=== PATIENT | female | born 2005 | race Caucasian/White ===

== ENCOUNTER 2024-08-17 14:41 | Emergency (ER) | payer MEDICAID, OTHER ==
[~2024-08-17] VITALS: Ht 167.6 cm; Wt 48.7 kg
[2024-08-17 14:52] VITALS: BP 102/56; TEMP 97.1; O2SAT 100
[2024-08-17 16:11] LABS: PLATELET COUNT, AUTOMATED 229 10^3/uL (150-450)
[2024-08-17 16:32] LABS: AMPHETAMINES LEVEL URINE NEGATIVE (NEGATIVE); BARBITURATES URINE NEGATIVE (NEGATIVE); BENZODIAZEPINES URINE NEGATIVE (NEGATIVE); COCAINE METABOLITE URINE NEGATIVE (NEGATIVE); METHADONE URINE NEGATIVE (NEGATIVE); OPIATES URINE NEGATIVE (NEGATIVE); PHENCYCLIDINE URINE NEGATIVE (NEGATIVE)
[2024-08-17 16:34] LABS: ETHYL ALCOHOL (ETHANOL) < 0.003 % (0.000-0.010)
[2024-08-17 16:35] LABS: SALICYLATE LEVEL < 3.0 MG/DL (<30)
[2024-08-17 16:36] LABS: ALT/SGPT 10 U/L (7.0-40); AST/SGOT 17 U/L (<34); CALCIUM LEVEL 8.7 MG/DL (8.5-10.1); CARBON DIOXIDE LEVEL 20 MMOL/L (20-31); CHLORIDE LEVEL 108 MMOL/L (98-107); CREATININE FOR GFR 0.41 MG/DL (0.55-1.30); GLOMERULAR FILTRATION RATE > 90.0 (>60); IRON (FE) 22 UG/DL (50-170); PERCENT SATURATION 5.7 % (13.2-45.0); POTASSIUM SERUM 4.0 MMOL/L (3.5-5.1); SODIUM LEVEL 142 MMOL/L (136-145)
[2024-08-17 16:37] LABS: CANNABINOIDS URINE POSITIVE (NEGATIVE)
[2024-08-17 17:15] LABS: HCG, SERUM QUANTITATIVE 107629.3 MIU/ML (<4.2)
[2024-08-17] MEDS ORDERED: BENA25CA4 PO (18:14)
[2024-08-17] MEDS ORDERED: FERR32TA PO (18:14)
== END 2024-08-17 18:37 | disposition home or self-care (01) ==
LOC: M ED 14:41
DX: O99.342 Other mental disorders complicating pregnancy, second trimester (principal); O99.012 Anemia complicating pregnancy, second trimester; O99.712 Diseases of the skin and subcutaneous tissue complicating pregnancy, second trimester; F32.9 Major depressive disorder, single episode, unspecified; D64.9 Anemia, unspecified; L30.9 Dermatitis, unspecified; Z3A.18 18 weeks gestation of pregnancy; Z91.013 Allergy to seafood

== ENCOUNTER → 2024-08-30 | Outpatient (CLI) | payer OTHER ==
[~2024-08-30] MED LIST: BENA25CA4 PO; FERR32TA PO
[2024-08-30 18:56] LABS: PLATELET COUNT, AUTOMATED 293 10^3/uL (150-450)
[2024-08-30 19:38] LABS: HIV 1&2 SCREEN NEGATIVE (NEGATIVE)
[2024-08-30 19:46] LABS: HEPATITIS C VIRUS ABY INDEX < 0.02 INDEX (<0.8)
[2024-08-30 19:57] LABS: Trichomonas vaginalis (AMP) NOT DETECTED (NEGATIVE)
[2024-08-30 20:21] LABS: GC DNA AMPLIFICATION NEGATIVE (NEGATIVE)
== END ==
LOC: M PLALAB 16:17
PROVIDERS: ATTEND Obstetrics & Gynecology
DX: Z34.92 Encounter for supervision of normal pregnancy, unspecified, second trimester (principal)

== ENCOUNTER → 2024-08-30 | Outpatient (REF) | payer OTHER | LOC: M PLALAB 15:51 | PROVIDERS: ATTEND Obstetrics & Gynecology | DX: Z53.9 Procedure and treatment not carried out, unspecified reason (principal) ==

== ENCOUNTER → 2024-09-25 | Outpatient (REF) | LOC: M LAB 10:36 | PROVIDERS: ATTEND Family Medicine | DX: Z02.89 Encounter for other administrative examinations (principal) ==

== ENCOUNTER → 2024-09-27 | Outpatient (CLI) | payer OTHER | LOC: M WHC 11:30 | PROVIDERS: ATTEND Specialist | DX: Z34.82 Encounter for supervision of other normal pregnancy, second trimester (principal); Z3A.23 23 weeks gestation of pregnancy ==

== ENCOUNTER → 2024-11-14 | Outpatient (CLI) | payer OTHER ==
[~2024-11-14] MED LIST changes: +CEPH500C; +PRENTAB9 PO
[2024-11-14 14:08] LABS: PLATELET COUNT, AUTOMATED 158 10^3/uL (150-450)
[2024-11-14 14:52] LABS: Trichomonas vaginalis (AMP) NOT DETECTED (NEGATIVE)
[2024-11-14 14:58] LABS: HIV 1&2 SCREEN NEGATIVE (NEGATIVE)
[2024-11-14 15:06] LABS: HEPATITIS C VIRUS ABY INDEX 0.02 INDEX (<0.8)
[2024-11-14 15:16] LABS: GC DNA AMPLIFICATION NEGATIVE (NEGATIVE)
== END ==
LOC: M PLALAB 11:21
PROVIDERS: ATTEND Specialist
DX: Z34.82 Encounter for supervision of other normal pregnancy, second trimester (principal)

== ENCOUNTER → 2024-11-17 | Outpatient (CLI) | payer OTHER ==
[~2024-11-17] MED LIST changes: -CEPH500C; -PRENTAB9 PO
== END ==
LOC: M WHC 08:17
PROVIDERS: ATTEND Specialist
DX: Z34.82 Encounter for supervision of other normal pregnancy, second trimester (principal)

== ENCOUNTER → 2025-01-01 | Outpatient (REF) | payer MEDICAID, OTHER ==
[~2025-01-01] MED LIST changes: +CEPH500C; +PRENTAB9 PO
== END ==
LOC: M SFHCWAGY 12:02
PROVIDERS: ATTEND Specialist
DX: Z34.80 Encounter for supervision of other normal pregnancy, unspecified trimester (principal); Z36.85 Encounter for antenatal screening for Streptococcus B